=== PATIENT | male | born 1995 | race African-American/Black ===

== ENCOUNTER 2019-09-06 15:27 | Emergency (ER) | payer OTHER ==
[~2019-09-06] VITALS: Ht 182.9 cm; Wt 69.0 kg
[2019-09-06 15:33] VITALS: BP 122/81
--- NOTE | 2019-09-06 16:24 | NUR ---
Pt given discharge instructions and they have confirmed that they understand the instructions. Patient ambulatory with steady gait. Pt questions were answered and he denies additional questions or needs prior to leaving.
== END 2019-09-06 16:19 ==
LOC: ED 16:13
DX: B34.9 Viral infection, unspecified (principal); R51 Headache
CPT/HCPCS: 99282